=== PATIENT | male | born 1945 | race Caucasian/White ===

== ENCOUNTER 2019-10-20 15:18 | Outpatient (CLI) | payer MEDICARE, SELFPAY ==
[2019-10-20 17:05] LABS: C Reactive Protein 2.4 mg/L (0.0-4.9); Creatine Phosphokinase 45 U/L (39-308)
[2019-10-21 03:46] LABS: Erythrocyte Sedimentation Rate 19 mm/hr (0-10)
[2019-10-21 13:46] LABS: Aldolase 4.6 U/L (< OR = 8.1)
[2019-10-21 14:16] LABS: SCL 70 <1.0 NEG AI (<1.0 NEG); SS A Ro Sjogrens Antibody <1.0 NEG AI (<1.0 NEG); SS-B/LA IGG <1.0 NEG AI (<1.0 NEG)
[2019-10-22 13:50] LABS: Cyclic Citrullinated Peptide <16 UNITS
[2019-10-22 14:50] LABS: Anti-Nuclear Antibody Screen NEGATIVE (NEGATIVE)
== END 2019-10-20 15:19 | disposition home or self-care (01) ==
LOC: LAB 15:23
PROVIDERS: Family Provider Nurse Practitioner; PCP Nurse Practitioner; Visit Provider Internal Medicine Critical Care Medicine
DX: J84.112 Idiopathic pulmonary fibrosis (principal)
CPT/HCPCS: 36415; 82085; 82550; 83516; 85651; 86038; 86140; 86235; 86431

== ENCOUNTER 2019-10-26 11:42 | Outpatient (CLI) | payer MEDICARE, SELFPAY ==
--- NOTE | 2019-10-26 14:31 | PFTS_ITS ---
Date of Study:10/26/19 Date of Dictation: MECHANICS: Forced vital capacity (FVC) is reduced. Forced expiratory volume in one second (FEV1) is reduced. FEV1/FVC is normal. FLOW VOLUME LOOP: Narrow. LUNG VOLUMES: Total lung capacity (TLC) is reduced. Residual volume (RV) is reduced. DIFFUSING CAPACITY FOR CARBON MONOXIDE: Not performed. INTERPRETATION: The pulmonary function tests are consistent with severe restriction. There is no significant postbronchodilator response. Lung volumes are consistent with severe restriction. Gas exchange (DLCO) was not measured. MTDD
== END 2019-10-26 11:43 | disposition home or self-care (01) ==
LOC: RT 11:46
PROVIDERS: PCP Nurse Practitioner; Visit Provider Nurse Practitioner Family
DX: J84.10 Pulmonary fibrosis, unspecified (principal); J84.112 Idiopathic pulmonary fibrosis
CPT/HCPCS: 94060; 94726; J7611

== ENCOUNTER 2019-10-29 14:58 | Outpatient (CLI) | payer MEDICARE, SELFPAY ==
--- NOTE | 2019-10-29 15:30 | CT_ITS ---
WS: [id number] CT scan of the chest without IV contrast, additional two-dimensional coronal and sagittal reconstruct ion was performed. High-resolution prone and supine views of the lungs were obtained. 10/29/2019 Clinical Data: IPF Comparison: None. DLP: 1506.[address] scans at [facility] use at least one of these dose optimization techniques: automat ed exposure control; mA and/or kV adjustment per patient size (includes targeted exams where dose is matched to clinical indication); or iterative reconstruction. Findings: Severe interstitial thickening was present throughout the lungs. Peripheral bleb formation was seen t hroughout the lungs. During expiration there was little change in the volume of the lungs. The prone imaging demonstrated minimal change in volume. The heart is enlarged and surrounded by pericardial fa t. The trachea bifurcates normally into the bronchi. No mediastinal or axillary adenopathy is seen. T he pulmonary artery is not increased in size. The thoracic aorta is normal with minimal calcification in the wall. There is a moderate hiatal hernia. The upper abdomen demonstrates no abnormalities. 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 CT/CT chest wo con [id number] Impression: 1. Severe interstitial pulmonary fibrosis with numerous peripheral blebs. 2. Marked loss of lung volume and little volume change between inspiration and expiration and prone and supine imaging..
== END 2019-10-29 14:59 | disposition home or self-care (01) ==
PROVIDERS: PCP Nurse Practitioner; Visit Provider Internal Medicine Critical Care Medicine
DX: J84.112 Idiopathic pulmonary fibrosis (principal)
CPT/HCPCS: 71250

== ENCOUNTER 2019-10-30 13:43 | Outpatient (CLI) | payer MEDICARE, SELFPAY ==
--- NOTE | 2019-10-30 13:49 | US_ITS ---
WS: [id number] ULTRASOUND THYROID TECHNIQUE: Ultrasound of the thyroid. CLINICAL INFORMATION: NONTOXIC MULTINODULAR GOITER COMPARISON: FINDINGS: Thyroid: Multiple bilateral thyroid nodules with heterogeneous thyroid echotexture. Findings compatib le with multinodular goiter. Largest nodules right thyroid measuring 11 x 11 mm. Largest nodules left thyroid measuring 2.0 x 1.9 CM. Right thyroid lobe: 3.9 cm x 1.2 cm x 1.5 cm Left thyroid lobe: 4.7 cm x 2.3 cm x 2.2 cm. Isthmus: 0.3 mm. Cervical lymphadenopathy: None. US/US thyroid [id number] IMPRESSION: 1. Bilateral thyroid nodules with heterogeneous thyroid echotexture consistent with multinodular goiter. 2. Dominant left thyroid nodule measuring 2.0x1.9 cm appears stable since 2016 . 3. Multiple subcentimeter right thyroid nodules appear increased since 2016. L argest measures 11 x 11 mm. 4. Recommend continued annual surveillance.
== END 2019-10-30 13:44 | disposition home or self-care (01) ==
LOC: RAD 13:45
PROVIDERS: PCP Nurse Practitioner; Visit Provider Nurse Practitioner Family
DX: E04.2 Nontoxic multinodular goiter (principal)
CPT/HCPCS: 76536

== ENCOUNTER → 2019-11-10 14:00 | Outpatient (BNVA) | payer MEDICARE, SELFPAY | PROVIDERS: PCP Nurse Practitioner; Visit Provider Nurse Practitioner Family | DX: R50.9 Fever, unspecified (principal); Z20.828 Contact with and (suspected) exposure to other viral communicable diseases | CPT/HCPCS: 87635 ==